=== PATIENT | male | born 1990 | race Caucasian/White ===

== ENCOUNTER → 2020-01-19 | Outpatient (CLI) | payer OTHER ==
[~2020-01-19] MED LIST: HYDACE7.5L PO; MULVITMINA
[2020-01-19 17:53] LABS: Alanine Aminotransfer (ALT/SGP 65 U/L (12-78); Albumin, Blood 3.6 g/dL (3.4-5.0); Albumin/Globulin Ratio 0.9 (0.8-1.8); Alk Phos 57 U/L (50-136); Anion Gap 4 mmol/L (6-16); Aspartate Aminotrans (AST/SGOT 28 U/L (12-37); Bilirubin, Total 0.3 mg/dL (0.1-1.0); Blood Urea Nitrogen 15 mg/dL (8-24); Bun/Creatinine Ratio 16.7 (12.0-20.0); CO2, Blood 27 mmol/L (21-32); Calcium, Blood 9.3 mg/dL (8.5-10.1); Chloride, Blood 109 mmol/L (98-108); Globulin, Blood 3.9 g/dL (2.2-4.0); Glomerular Filtration Rate >60 (60-); Glucose, Blood 99 mg/dL (70-99); Potassium, Blood 4.6 mmol/L (3.5-5.5); Sodium, Blood 140 mmol/L (136-145); Total Protein, Blood 7.5 g/dL (6.4-8.2)
[2020-01-19 17:58] LABS: Thyroid Stimulating Hormone 0.871 uIU/mL (0.360-4.800)
[2020-01-19 18:36] LABS: BASOPHILS ABSOLUTE AUTO 0.03 K/mm3 (0.00-0.23); BASOPHILS PERCENT AUTO 1 % (0-2); EOSINOPHILS ABSOLUTE AUTO 0.26 K/mm3 (0.00-0.68); EOSINOPHILS PERCENT AUTO 4 % (0-6); Hematocrit 50.9 % (37.0-53.0); Hemoglobin 16.7 g/dL (13.5-17.5); IMMATURE GRAN ABSOLUTE AUTO 0.01 K/mm3 (0.00-0.10); IMMATURE GRAN PERCENT AUTO 0 % (0-1); LYMPHOCYTES PERCENT AUTO 32 % (21-46); MONOCYTES ABSOLUTE AUTO 0.67 K/mm3 (0.16-1.47); MONOCYTES PERCENT AUTO 11 % (4-13); Mean Corpuscular HGB 29.3 pg (26.0-34.0); Mean Corpuscular HGB Conc 32.8 g/dL (31.5-36.5); Mean Corpuscular Volume 90 fL (80-100); NEUTROPHILS ABSOLUTE AUTO 3.35 K/mm3 (1.96-9.15); NEUTROPHILS PERCENT AUTO 53 % (41-73); Platelet Count 270 K/mm3 (150-400); RDW Coefficient Variation 12.5 % (11.7-14.2); RDW Standard Deviation 41.1 fL (35.1-46.3); Red Blood Cell Count 5.69 M/mm3 (4.30-5.90); White Blood Cell Count 6.32 K/mm3 (4.00-11.30)
== END | disposition home or self-care (01) ==
LOC: LAB 16:35 → LAB SHORT 16:35
PROVIDERS: Nurse Practitioner Family
DX: E66.9 Obesity, unspecified (principal)
CPT/HCPCS: 80053; 84443; 85025